=== PATIENT | female | born 1975 | race American Indian/Alaskan Native ===

== ENCOUNTER 2017-03-20 10:17 | Emergency (ER) | payer OTHER ==
[2017-03-20 11:10] LABS: BASO # 0.1 K/uL (0.0-0.2); BASO % 1.4 % (0.0-2.0); EOS # 0.2 K/uL (0.0-0.7); EOS % 2.4 % (0.0-4.0); HEMATOCRIT 38.6 % (34.0-47.0); LYMPH # 3.6 K/uL (1.0-4.3); LYMPH % 48.1 % (20.0-40.0); MEAN CELL VOLUME 83.1 fL (81.0-99.0); MEAN CORPUSCULAR HEMOGLOBIN 27.8 pg (27.0-31.0); MEAN CORPUSCULAR HGB CONC 33.4 g/dL (33.0-37.0); MEAN PLATELET VOLUME 7.2 fL (7.2-11.7); MONO # 0.6 K/uL (0.0-0.8); MONO % 8.3 % (0.0-10.0); RED CELL DISTRIBUTION WIDTH 14.8 % (11.5-14.5); WHITE BLOOD COUNT 7.6 K/uL (4.8-10.8)
[2017-03-20 11:18] LABS: CHLORIDE 103 mmol/L (98-107); POTASSIUM 3.8 mmol/L (3.6-5.2); SODIUM 137 mmol/L (132-148)
[2017-03-20 11:20] LABS: ALB/GLOB RATIO 1.3 (1.0-2.1); ALKALINE PHOSPHATASE 90 U/L (38-126); AST/SGOT 24 U/L (14-36); BILIRUBIN,TOTAL 0.5 mg/dL (0.2-1.3); BLOOD UREA NITROGEN 10 mg/dL (7-17); CALCIUM 9.1 mg/dl (8.6-10.4); CARBON DIOXIDE 22 mmol/L (22-30); GFR AFRICAN-AMERICAN > 60; GLUCOSE,RANDOM 100 mg/dL (65-105)
[2017-03-20 11:21] LABS: ALT/SGPT 38 U/L (9-52)
--- NOTE | 2017-03-20 11:35 | C.PDOC ---
History Of Present Illness 42 y/o female with htn, g8 T4 L4, lmp 03/07,c/o vaginal bleeding x 2 days s /p transvaginal ultrasound done in ed 2 days. pt reports using 3 pads yesterday , denies abdominal pain, llightheadedness, passage of clots. pt discovered she was on last ed visit, had us with no iup. Time Seen by Provider: 03/20/17 10:34 Chief Complaint (Nursing): Female Genitourinary History Per: Patient History/Exam Limitations: no limitations Current Symptoms Are (Timing): Still Present Severity: Mild Associated Symptoms: Other (vaginal bleeding). denies: Fever, Chills, Nausea, Vomiting Last Menstral Period: 03/07/17 : 8 Para: 4 Miscarriage: 3 Past Medical History Reviewed: Historical Data, Nursing Documentation, Vital Signs Vital Signs: Last Vital Signs Temp 98.2 F 03/20/17 11:58 Pulse 68 03/20/17 11:58 Resp 16 03/20/17 11:58 BP 136/88 03/20/17 11:58 Pulse Ox 99 03/20/17 11:58 - Medical History PMH: Back Problems (sciatica), HTN Surgical History: Family History: States: Unknown Family Hx - Social History Hx Tobacco Use: No Hx Alcohol Use: No Hx Substance Use: No - Immunization History Hx Tetanus Toxoid Vaccination: No Hx Influenza Vaccination: No Hx Pneumococcal Vaccination: No Review Of Systems Constitutional: Negative for: Fever, Chills Cardiovascular: Negative for: Chest Pain Respiratory: Negative for: Cough, Shortness of Breath Gastrointestinal: Negative for: Nausea, Vomiting, Abdominal Pain Genitourinary: Positive for: Vaginal Discharge. Negative for: Dysuria, Vaginal Bleeding Physical Exam - Physical Exam Appears: Non-toxic, No Acute Distress Skin: Normal Color, Warm, Dry Head: Atraumatic, Normacephalic Cardiovascular: Rhythm Regular, No Murmur Respiratory: Normal Breath Sounds, No Rales, No Rhonchi, No Wheezing Gastrointestinal/Abdominal: Bowel Sounds, Soft, No Tenderness Neurological/Psych: Oriented x3, Normal Speech, Normal Cognition ED Course And Treatment - Laboratory Results Result Diagrams: 03/20/17 11:02 03/20/17 11:02 O2 Sat by Pulse Oximetry: 100 Medical Decision Making Medical Decision Making: pt with earlyu preg, no iup noted 2 day ago, beta hcg was 90 on 1010. today with vag bleeding, no ultrasound. pt has o negative blood, wwas given rhogam on 03/18/17. 1245 pm pt with decreased bhcg from 90 to 39, with vag bleeding. no abdominal pain. will d/c with f/u reimbursement liaison clinic to follow bhcg to zero. Disposition Counseled Patient/Family Regarding: Diagnosis, Need For Followup - Disposition Referrals: [facility] [Outside] Disposition: HOME/ ROUTINE Disposition Time: 12:48 Condition: STABLE Additional Instructions: Follow up in reimbursement liaison/medical clinic next week for further evaluation of hormone level; it should be followed down to zero. Return to ER for any heavy vaginal bleeding (one pad per hour), abdominal pain. dizziness or other concerns. Forms: [facility] (Dominican), General Discharge Instructions - Clinical Impression Clinical Impression: Threatened
[2017-03-20 11:59] VITALS: BP 136/88; PULSE 68; RESP 16; TEMP 98.2
[2017-03-20 12:51] VITALS: O2SAT 100
== END 2017-03-20 12:57 | disposition home or self-care (01) ==
LOC: C.ER 10:17
DX: O20.0 Threatened abortion (principal); Z3A.00 Weeks of gestation of pregnancy not specified